=== PATIENT | female | born 1970 | race Caucasian/White ===

== ENCOUNTER 2020-02-01 07:25 | Day surgery (SDC) | payer OTHER ==
[~2020-02-01] VITALS: Ht 175.3 cm; Wt 59.9 kg
[2020-02-01] MEDS ORDERED: LACTATED RINGERS 1,000 ML IV SCH (07:56)
[2020-02-01] MEDS ORDERED: VENL37.52 PO (07:58)
[2020-02-01] MEDS ORDERED: CHLORHEXIDINE 15 ML UDC MM ONE (08:00)
[2020-02-01 08:03] VITALS: BP 129/75
[2020-02-01] MEDS ORDERED: CHLORHEXIDINE 15 ML UDC ONE (08:10)
[2020-02-01] MEDS ORDERED: EPINEPHRINE 1 MG/ML, 1ML ONE (08:26)
[2020-02-01] MEDS ORDERED: BUPIVACAINE/PF 0.5% ONE (08:26)
[2020-02-01] MEDS ORDERED: MIDAZOLAM 1 MG/ML, 2ML ONE (08:38)
[2020-02-01] MEDS ORDERED: FENTANYL PF 250 MCG/5ML ONE (08:39)
[2020-02-01 08:44] LABS: HCG UR SG 1.018 (1.003-1.030)
[2020-02-01] MEDS ORDERED: SUCCINYLCHOLINE 20 MG/ML, 10ML ONE (09:02)
[2020-02-01] MEDS ORDERED: PROPOFOL 10 MG/ML, 20ML ONE (09:02)
[2020-02-01] MEDS ORDERED: ROCURONIUM 10 MG/ML,10ML ONE (09:02)
[2020-02-01] MEDS ORDERED: DEXAMETHASONE 4 MG/ML, 1ML ONE (09:02)
[2020-02-01] MEDS ORDERED: CEFAZOLIN 1,000 MG ONE (09:02)
[2020-02-01] MEDS ORDERED: ONDANSETRON 2MG/ML, 2ML ONE (09:02)
[2020-02-01] MEDS ORDERED: DIAZEPAM 5 MG/ML, 2ML IV PRN ×2 (09:30)
[2020-02-01] MEDS ORDERED: HYDROmorphone 1 MG/ML, 1ML INJ IV PRN (09:30)
[2020-02-01] MEDS ORDERED: OXYcodone 5 MG/5 ML ORAL.SOL UDC PO PRN (09:30)
[2020-02-01] MEDS ORDERED: ONDANSETRON 2MG/ML, 2ML IVPush PRN (09:30)
[2020-02-01] MEDS ORDERED: hydrALAzine 20 MG/ML, 1ML IV PRN (09:30)
[2020-02-01] MEDS ORDERED: METOCLOPRAMIDE 5 MG/ML, 2ML IV PRN (09:30)
[2020-02-01] MEDS ORDERED: LABETALOL 5MG/ML, 20ML IV PRN (09:30)
[2020-02-01] MEDS ORDERED: MEPERIDINE/PF 25MG/0.5ML IVPush PRN (09:30)
[2020-02-01] MEDS ORDERED: ALBUTEROL SULFATE 2.5 MG/3 ML NPPB PRN (09:30)
[2020-02-01] MEDS ORDERED: KETOROLAC 30 MG/1 ML IV PRN (09:30)
[2020-02-01] MEDS ORDERED: FENTANYL PF 100 MCG/2ML IV PRN (09:30)
[2020-02-01] MEDS ORDERED: FENTANYL PF 100 MCG/2ML ONE (09:54)
[2020-02-01] MEDS ORDERED: MEPERIDINE/PF 25MG/ML,1ML ONE (09:54)
[2020-02-01] MEDS ORDERED: OXYcodone 5 MG/5 ML ORAL.SOL UDC ONE (09:55)
== END 2020-02-01 11:45 | disposition home or self-care (01) ==
LOC: OUT 07:25
PROVIDERS: ATTEND Orthopaedic Surgery
DX: S52.531A Colles' fracture of right radius, initial encounter for closed fracture (principal); Z20.828 Contact with and (suspected) exposure to other viral communicable diseases; S32.411A Displaced fracture of anterior wall of right acetabulum, initial encounter for closed fracture; G89.18 Other acute postprocedural pain; W19.XXXA Unspecified fall, initial encounter; Y93.89 Activity, other specified; Y92.89 Other specified places as the place of occurrence of the external cause; Y99.8 Other external cause status
CPT/HCPCS: 25609; 27220; 36415; 64415; 73100; 81025; 87635; C1713; C1776; J0171; J0330; J0690; J1100; J2250; J2405; J2704; J3010; J7120; 76000

== ENCOUNTER 2021-03-18 10:45 | Emergency (ER) | payer OTHER ==
[~2021-03-18] VITALS: Ht 170.2 cm; Wt 62.7 kg
[~2021-03-18 10:45] MED LIST: VENL37.52 PO
[2021-03-18 12:16] LABS: BASOPHILS % (AUTO) 0 % (0-1); EOSINOPHILS % (AUTO) 1 % (1-7); LYMPHOCYTES % (AUTO) 36 % (22-44); MEAN CORPUSCULAR HEMOGLOBIN 31.2 pg (27.0-34.8); MEAN CORPUSCULAR HGB CONC 34.4 g/dL (32.4-35.8); MEAN PLATELET VOLUME 7.4 fL (7.4-10.4); MONOCYTES % (AUTO) 7 % (2-9); NEUTROPHILS % (AUTO) 56 % (42-75); PLATELET COUNT 191 x10^3/uL (130-400); RED BLOOD COUNT 4.44 x10^6/uL (3.82-5.3); RED CELL DISTRIBUTION WIDTH 12.2 % (9.6-15.2)
[2021-03-18 12:19] LABS: ALANINE AMINOTRANSFERASE 15 U/L (12-78); ALBUMIN 3.8 g/dL (3.4-5.0); ANION GAP 5 mmol/L (5-15); CALCIUM 11.3 mg/dL (8.5-10.1); CHLORIDE 108 mmol/L (98-107); CREATININE 0.56 mg/dL (0.55-1.02)
[2021-03-18 12:21] LABS: ALKALINE PHOSPHATASE 100 U/L (45-117); BILIRUBIN,TOTAL 0.5 mg/dL (0.2-1.0); TOTAL PROTEIN 7.8 g/dL (6.4-8.2)
[2021-03-18 14:16] VITALS: BP 142/83
--- NOTE | 2021-03-18 15:31 | NUR ---
[employer]: DISCHARGE FROM [facility] Patient/Caregiver given discharge instructions and they have confirmed that they understand the instructions. Patient ambulatory with steady gait. NAD, all questions answered appropriately, denies additional needs at this time. No personal belongings left in room after discharge.
== END 2021-03-18 15:25 | disposition home or self-care (01) ==
LOC: ED 15:25
DX: R05 Cough (principal); R50.9 Fever, unspecified; M79.10 Myalgia, unspecified site; Z20.822 Contact with and (suspected) exposure to COVID-19
CPT/HCPCS: 36415; 71045; 80053; 85025; 99284